=== PATIENT | female | born 1985 | race Caucasian/White ===

== ENCOUNTER → 2023-11-17 15:50 | Outpatient (REF) | payer OTHER, SELFPAY | LOC: DHCBC HW 15:50 | PROVIDERS: ATTENDING PHYSICIAN Internal Medicine; FAMILY PHYSICIAN Nurse Practitioner Family | DX: R06.02 Shortness of breath (principal); R07.89 Other chest pain; E66.9 Obesity, unspecified | CPT/HCPCS: 93306 ==

== ENCOUNTER → 2023-11-18 06:52 | Outpatient (REF) | payer OTHER, SELFPAY | LOC: RSP 06:52 | PROVIDERS: ATTENDING PHYSICIAN Internal Medicine; FAMILY PHYSICIAN Nurse Practitioner Family | DX: R06.02 Shortness of breath (principal); R07.89 Other chest pain; E66.9 Obesity, unspecified | CPT/HCPCS: 94727; 94729; 88738; 94010 ==

== ENCOUNTER → 2023-12-09 20:13 | Outpatient (REF) | payer OTHER, SELFPAY | LOC: MRI 20:13 | PROVIDERS: ATTENDING PHYSICIAN Nurse Practitioner Family | DX: R42 Dizziness and giddiness (principal) | CPT/HCPCS: 70553; A9575 ==